=== PATIENT | male | born 1950 | race Caucasian/White ===

== ENCOUNTER 2017-03-23 17:06 | Inpatient (IN) ==
[2017-03-23] MEDS ORDERED: Furosemide 40 MG/4 ML VIAL IVP ONE (17:21)
--- NOTE | 2017-03-23 17:23 | Emergency Department Note ---
Disposition Clinical Impression: Shortness of breath, Orthopnea, Renal insufficiency CHF (congestive heart failure) Qualifiers: Congestive heart failure type: systolic Congestive heart failure chronicity: acute Qualified Code(s): I50.21 - Acute systolic (congestive) heart failure Disposition: Admitted As Inpatient Condition: Good Time of Disposition: 19:00 SOB HPI - General Chief Complaint: ED Shortness of Breath/Dyspnea Stated Complaint: SOB/ABRIL Time Seen by Provider: 03/23/17 17:15 Source: patient Limitations: no limitations Nursing Notes Reviewed: Yes Vital Signs Reviewed: Yes - History of Present Illness Patient is 67-year-old male with no prior history of cardiac events. Patient has a history of hypertension is on lisinopril who complains of intermittent chest pain, lightheadedness and shortness of breath worse with laying flat in times past 2 weeks. Patient states 3 weeks ago he was seen by urology received lithotripsy for right kidney stone and placement of stent which resulted in bilateral lower extremity edema 5 days later. Patient had pain 5 days after secondary to stent but after stents removed pain went away. Patient is seen at the [facility], d-dimer was elevated and had CT A performed which is negative for PE. - Related Data Home Medications Medication Instructions Recorded Confirmed Amitriptyline [Elavil] 10 mg PO HS 03/23/17 03/23/17 Cholecalciferol (D-3) [Vitamin D] 2,000 unit PO DAILY 03/23/17 03/23/17 Cyanocobalamin (B-12) [Vitamin B12] 1,000 mcg IM QMONTH 03/23/17 03/23/17 Lisinopril [Zestril] 10 mg PO DAILY 03/23/17 03/23/17 Niacin [Niaspan] 500 mg PO HS 03/23/17 03/23/17 Terazosin HCl 2 mg PO HS 03/23/17 03/23/17 glipiZIDE [Glipizide] 20 mg PO BID 03/23/17 03/23/17 metFORMIN [Glucophage] 850 mg PO TIDWM 03/23/17 03/23/17 Allergies Allergy/AdvReac Type Severity Reaction Status Date / Time simvastatin AdvReac Muscle Pain Verified 03/23/17 18:29 Review of Systems: Patient admits to weakness, lightheadedness, orthopnea, and bilateral lower extremity edema. Patient denies chest pain, abdominal pain, back pain. Patient denies focal neurologic deficits or vertigo. Patient denies loss of consciousness or falls All systems ED: reviewed and negative except as stated. Review of Systems: As Per HPI Constitutional: Reports: weakness. Denies: fever, chills Eyes: Denies: vision change Past Medical History - Past Medical History Attestation: Yes The following information was validated with the patient. Source: patient Physical Exam - General Limitations: no limitations General appearance: alert, in no apparent distress - Head Head exam: atraumatic, normocephalic, normal inspection - Eye Eye exam: Present: normal appearance, PERRL, EOMI - ENT ENT exam: normal exam, normal oropharynx, mucous membranes moist - Neck Neck exam: Present: normal inspection, full ROM, trachea midline - Chest Chest inspection: Present: normal inspection, symmetric chest wall rise - Respiratory Respiratory exam: Present: normal lung sounds bilaterally - Cardiovascular Cardiovascular exam: Present: regular rate, normal rhythm, normal heart sounds - Abdominal Exam Abdominal exam: Present: soft, Non-Tender. Absent: tenderness, distention, guarding, rebound, rigidity - Extremities Exam Extremities exam: Present: normal inspection, full ROM, pedal edema (1+ bilateral pitting edema). Absent: tenderness, calf tenderness - Back Exam Back exam: Present: normal inspection, full ROM. Absent: tenderness, CVA tenderness (R), CVA tenderness (L), muscle spasm, paraspinal tenderness - Neurological Exam Neurological exam: Present: alert, oriented X3, CN II-XII intact - Skin Skin exam: Present: warm, dry, intact, normal color Course Course Narrative: Patient concerns. Acute onset of shortness of breath, pedal edema 1+ pitting, bilateral lung rails with orthopnea concerning for CHF of new onset secondary to unknown source. Patient has recent troubles with kidney stones and bilateral lower extremity swelling after lithotripsy. Possible I patient suffered insult to the kidneys. Patient's lab here shows BNP elevation. Patient is treated with DuoNeb's, - Reevaluation(s) Reevaluation #1: Patient seen and examined. [facility] CTA chest for PE. Patient history and exam consistent with CHF exacerbation. Patient has no prior history of cardiac events but has history of possible renal insufficiency most likely secondary to recent troubles with kidney stones. Plan is for patient be admitted for further evaluation Vital Signs Temperature 98.3 F 03/23/17 17:14 Pulse Rate 61 03/23/17 17:14 Respiratory Rate 20 03/23/17 17:14 Blood Pressure 174/105 03/23/17 17:14 O2 Sat by Pulse Oximetry 98 03/23/17 17:14 Temperature 99.3 F 03/24/17 00:19 Pulse Rate 61 03/24/17 00:19 Respiratory Rate 19 03/24/17 00:19 Blood Pressure 176/93 03/24/17 00:19 O2 Sat by Pulse Oximetry 94 03/24/17 00:19 Oxygen Delivery Oxygen Delivery Room Air Shortness of Breath/Dyspnea - MDM Narrative Medical decision making narrative: Patient concerns. Acute onset of shortness of breath, pedal edema 1+ pitting, bilateral lung rails with orthopnea concerning for CHF of new onset secondary to unknown source. Patient has recent troubles with kidney stones and bilateral lower extremity swelling after lithotripsy. Possible I patient suffered insult to the kidneys. Patient currently has been hypertensive and states he is normally normotensive at 120/70. This may also be a symptom of patient's heart failure and renal insufficiency. Patient's lab here shows BNP elevation. Patient is treated with DuoNeb's, acetaminophen for headache. Patient's also started on nitroglycerin and Lasix for blood pressure control and for diuresis. Patient admits to 40 mg Lasix IV. Patient currently comfortable and not breathing at a fast rate on this patient seen to be in respiratory distress that would require BiPAP at this time. Recommend close monitoring for any signs of respiratory distress that patient should then be started on BiPAP. Patient is accepted for admission by Dr. Hardin the hospitalist - Lab Data Result diagrams: 03/24/17 00:11 03/24/17 00:11 Lab Results 03/23/17 03/23/17 03/23/17 Range/Units 17:45 17:45 17:45 Lactic Acid 1.2 (0.5-2.2) mmol/L Troponin I 0.02 (0-0.03) ng/mL B-Natriuretic Peptide 364 H (0-100) pg/mL Attestation Statement - Attestation Attestation: I, Chris Diaz, examined this patient and my medical decision-making was reviewed with the COMMUNICATIONS CONTROLLER/PA/Advanced Practice Nurse/Resident Physician. I agree with the documented findings, disposition and treatment plan as described except to the extent set forth below. 67-year-old male presents to the emergency department with concerns of shortness of breath and weakness and headache. Patient states he had recent lithotripsy for an obstructing kidney stone, after the procedure he had decreased urination, he then stopped his Flomax and he was unable to urinate at all. Patient states he then started to swell and have increased difficulty breathing which increased over the period of a couple days. He then started to take his Flomax again about 2 days prior to evaluation emergency Department, he has noticed that his symptoms have started to improve however they are not resolved. Patient was evaluated by the [facility] urgent [facility], he had a elevated d- dimer however his CTA of his chest did not reveal evidence of acute PE. It did however show bilateral pleural effusions with almost complete collapse of the left lower lobe partial collapse of the right lower lobe. Troponin within normal limits. Creatinine within normal limits today. Patient's blood pressure was significantly elevated upon initial arrival in the emergency department. I feel like this is secondary to acute CHF exacerbation. Patient treated with nitroglycerin which improved his blood pressure and headache. No focal neurologic deficits on exam. Denies chest pain. EKG showed normal sinus rhythm with rate of 61 without evidence of STEMI. OB admitted the hospital for further care and evaluation of his acute congestive heart failure, bilateral pleural effusions and hypertension.
[2017-03-23] MEDS: Nitroglycerin 0.4 MG TAB.SUBL SL PRN ×3 (17:41→17:52)
[2017-03-23] MEDS ORDERED: 0.9 % Sodium Chloride 1,000 ML IVC ONE (19:07)
[2017-03-23] MEDS ORDERED: Ipratropium/Albuterol Neb 3 ML IH ONE (19:18)
[2017-03-23] MEDS ORDERED: Nitroglycerin 0.2 MG PATCH.TD24 TD ONE (19:30)
[2017-03-23] MEDS ORDERED: Nitroglycerin 0.2 MG PATCH.TD24 TD SCH (19:30)
[2017-03-23] MEDS: Nitroglycerin 0.4 MG TAB.SUBL SL STA ×2 (19:31→19:38)
[2017-03-23] MEDS ORDERED: Ondansetron ODT 4 MG TAB.RAPDIS SL PRN (20:37)
[2017-03-23] MEDS ORDERED: Naloxone 0.4 MG/ML INJ IVP PRN (20:37)
[2017-03-23] MEDS ORDERED: D5% in Water 1,000 ML IVC PRN (20:41)
[2017-03-23] MEDS ORDERED: Dextrose Gel 15 GM PO PRN ×2 (20:41)
[2017-03-23] MEDS ORDERED: *HR* Dextrose 50 % in Water (Syg) 50 ML SYRINGE IVP PRN (20:41)
--- NOTE | 2017-03-23 20:47 | Internal Med History&Physical ---
<Devin Kothari - Last Filed: 03/23/17 21:00> Date of Encounter: 03/23/17 Time of Encounter: 20:43 Assessment and Plan (1) Acute exacerbation of CHF (congestive heart failure) Current visit: Yes Status: Acute Patient states he had lithotripsy done 2 weeks ago at the [facility]. Noticed again of 10 pounds post procedure. symptoms of shortness of breath, lower extremity swelling, headache that has been constant after the procedure. [facility] underwent CTA showing no evidence of PE but large bilateral pleural effusions with atelectasis bilaterally Chest x-ray at [facility] shows bilateral pleural effusions BNP elevated at 360 Lower extremity edema 2+ Troponin wnl. Denies chest pain EKG NSR HR [address] elevation or depressions Plan: IV Lasix Fluid restricted diet Cardiac ADA diet Echocardiogram Strict I's and O's continue home lisinopril Qualifiers: Congestive heart failure type: unspecified congestive heart failure type Qualified Code(s): I50.9 - Heart failure, unspecified (2) Hypertension Current visit: Yes Status: Acute Patient presents with a blood pressure of systolic over 200. States at home his blood pressure usually runs 120/80 Likely secondary to fluid overload Reports headache that is frontal, constant, 10/10, throbbing denies blurry vision, confusion, slurred speech, facial droop Plan: Continue home lisinopril IV Lasix Q4h vitals Qualifiers: Hypertension type: essential hypertension Qualified Code(s): I10 - Essential (primary) hypertension (3) Diabetes mellitus Current visit: Yes Status: Acute History of diabetes mellitus controlled with glipizide and metformin. Plan: Cardiac ADA diet Low dose sliding scale insulin ACHS Qualifiers: Diabetes mellitus type: type 2 Diabetes mellitus complication status: without complication Diabetes mellitus half-way insulin use: without regrinder operator use Qualified Code(s): E11.9 - Type 2 diabetes mellitus without complications (4) History of kidney stones Current visit: Yes Status: Acute s/p lithotripsy secondary to obstruction from renal calculi Denies dysuria, hematuria Patient was put on Flomax after the procedure which he states he stopped last week and noticed a significant decrease in his urine production. Patient restarted the medication and states his urine production is back to normal. Plan: Continue Flomax Follow up with outpatient urology (5) DVT prophylaxis Current visit: Yes Status: Acute heparin SQ Internal Medicine - H&P: HPI Chief complaint: sob Admitted From: Home Plans for Post Hospital Care: Home History of present illness: Mr. Guerrero is a 67 year old male presents with cc of sob. 3 weeks ago patient had lithotripsy at the [facility] and noted to gain 10 pounds after the procedure. Patient started noticing shortness of breath, lower extremity swelling. He was short of breath on exertion and while laying flat. His symptoms of minimally improved since his surgery. States he weighs 173 pounds and used to weigh 165 before the surgery. Denies history of congestive heart failure. Denies previous cardiac workup. He started having frontal headaches that radiate to the back that are described as throbbing and progressively worsening over the last 3 weeks without confusion, passing out, dizziness. Headache would worsen with movement and improvement narcotic pain medication. Denies chest pain, abdominal pain, numbness, tingling, slurred speech, unilateral weakness. Reports after the lithotripsy he was put on Flomax and had no problems with urine output. He discontinued this one week ago and noticed his urine output completely stopped as patient restarted taking medication with improvement in his urine production. Past Med Surg Social Fam HX - Past Medical History Medical history: diabetes, hypertension, kidney stones Psychiatric history: no psych history - Past Surgical History Surgical History: ureteral stent - Social History Smoking Status: Former smoker Smokeless Tobacco Status: No Alcohol use: occasionally Drug use: none - Family History Father Hx Family Cancer: No Internal Medicine - H&P: Meds Amitriptyline [Elavil] 10 mg PO HS 03/23/17 [History] Cholecalciferol (D-3) [Vitamin D] 2,000 unit PO DAILY 03/23/17 [History] Cyanocobalamin (B-12) [Vitamin B12] 1,000 mcg IM QMONTH 03/23/17 [History] Lisinopril [Zestril] 10 mg PO DAILY 03/23/17 [History] Niacin [Niaspan] 500 mg PO HS 03/23/17 [History] Terazosin HCl 2 mg PO HS 03/23/17 [History] glipiZIDE [Glipizide] 20 mg PO BID 03/23/17 [History] metFORMIN [Glucophage] 850 mg PO TIDWM 03/23/17 [History] 3 Allergy/AdvReac Type Severity Reaction Status Date / Time simvastatin AdvReac Muscle Pain Verified 03/23/17 18:29 All Systems PM: A 10-system review of systems was performed and is negative for pertinent findings except as documented above in the HPI. Review of systems: Constitutional: Denies fever, chills HEENT: Denies vision changes, neck pain, sore throat, rhinorrhea. Reports headaches Heart: Denies chest pain palpitations Lungs: With poor shortness of breath. Denies cough Abdomen: Denies abdominal pain nausea vomiting diarrhea Back: Denies back pain Kidney: Denies dysuria, hematuria Skin: warm and dry Extremities: Reports lower extremity swelling, denies pain Neuro: Denies numbness, and tingling - Constitutional Vitals: Temp Pulse Resp BP Pulse Ox 98.3 F 65 20 173/92 98 03/23/17 17:24 03/23/17 20:22 03/23/17 20:22 03/23/17 20:22 03/23/17 20:22 - Other Additional findings: General: Pleasant male without distress HEENT: Head atraumatic, normocephalic, EOMI, PERRLA, neck nontender to palpation , absent lymphadenopathy, Moist Mucous Membranes, Heart: Regular rate and rhythm with no murmur Lungs: Bilateral crackles otherwise clear. Diminished breath sounds Abdomen: Soft nontender, nondistended positive bowel sounds Skin: warm and dry Extremities: 2+ pedal edema Neuro: Cranial nerves II through XII intact, UE and LE sensation equal bilaterally, UE and LEstrength 5/5, alert oriented 3, Heel to kumar intact, finger to nose intact, Gait intact, b/l plantar reflexes downwards Vascular: Pedal and radial pulses 2 out of 4 <Lopez Hardin - Last Filed: 03/24/17 00:00> Date of Encounter: 03/23/17 Internal Medicine - H&P: HPI History of present illness: Mr. Guerrero is a 67 year old male All Systems PM: A 10-system review of systems was performed and is negative for pertinent findings except as documented above in the HPI. - Constitutional Vitals: Temp Pulse Resp BP Pulse Ox 98.2 F 64 19 201/90 92 03/23/17 21:18 03/23/17 21:18 03/23/17 21:18 03/23/17 21:18 03/23/17 21:18 - Attending Attestation I examined this patient and my medical decision-making was reviewed with the Resident Physician, Dr. Devin Kothari. I agree with the documented findings, disposition and treatment plan as described except to the extent set forth below. I have independently obtained history and examined the patient and my findings are summarized below: Patient presents with lower extremity swelling On exam she he is in no acute distress. Heart is regular. Lungs are diminished bilaterally at both bases Plan: IV Lasix twice a day, fluid restriction, daily weights, strict I's and O's , check echocardiogram and trend troponin. shelter monitor.
[2017-03-23] MEDS: Niacin (24 HR) 500 MG TAB.ER.24H PO SCH (23:28)
[2017-03-23] MEDS: Famotidine 20 MG TABLET PO SCH (23:29)
[2017-03-23] MEDS: *HR* Heparin 5,000 UNIT/ML VIAL SQ SCH (23:29)
[2017-03-23] MEDS: Insulin LISPRO 300 UNITS/3 ML VIAL SQ SCH (23:32)
[2017-03-23] MEDS: Acetaminophen 325 MG TABLET PO PRN (23:46)
[2017-03-24 00:23] LABS: Basophils % 0.3 %; Eosinophils # 0.2 K/mcL (0.0-0.6); Eosinophils % 2.9 %; Hematocrit 30.1 % (37.5-50.1); Hemoglobin 10.2 g/dL (12.9-16.9); Immature Granulocytes % 0.3 % (0-4); Lymphocytes # 1.8 K/mcL (0.6-4.6); Lymphocytes % 22.9 %; Mean Corpuscular HGB Conc 33.9 g/dL (31.6-35.5); Mean Corpuscular Hemoglobin 30.8 pg (28.0-33.3); Mean Corpuscular Volume 90.9 fL (83.0-100.0); Mean Platelet Volume 9.5 fL (9.4-12.4); Monocytes # 0.6 K/mcL (0.0-1.3); Monocytes % 7.1 %; Neutrophils # 5.2 K/mcL (1.6-8.9); Platelet Count 210 K/mcL (140-400); Red Blood Count 3.31 M/mcL (4.19-5.50); Segmented Neutrophils % 66.5 %
[2017-03-24 00:35] LABS: BUN/Creatinine Ratio 27 (6-26); Blood Urea Nitrogen 26 mg/dL (8-26); Calcium 9.6 mg/dL (8.6-10.8); Carbon Dioxide 20 mEq/L (19-29); Chloride 113 mEq/L (98-109); Glucose 191 mg/dL (70-99); Magnesium 1.5 mg/dL (1.6-2.6); Osmolality,Calculated 304 (280-300); Potassium 3.8 mEq/L (3.5-4.5); Sodium 142 mEq/L (136-145); eGFR For African Americans > 60 (> 60); eGFR For Non-African Americans > 60 (> 60)
[2017-03-24] MEDS ORDERED: Magnesium Sulfate 1 GM in D5% in Water 100 ML IVPB ONE (02:41)
[2017-03-24] MEDS: *HR* Heparin 5,000 UNIT/ML VIAL SQ SCH ×3 (05:48→21:08)
[2017-03-24] MEDS: Acetaminophen 325 MG TABLET PO PRN ×3 (05:48→21:08)
[2017-03-24] MEDS: Insulin LISPRO 300 UNITS/3 ML VIAL SQ SCH ×4 (08:46→22:12)
[2017-03-24] MEDS ORDERED: Furosemide 40 MG/4 ML VIAL IVP SCH (09:00)
[2017-03-24] MEDS: Famotidine 20 MG TABLET PO SCH ×2 (09:32→21:08)
[2017-03-24] MEDS ORDERED: Cyanocobalamin (B-12) 1,000 MCG/ML VIAL IM SCH ×2 (10:00→10:30)
--- NOTE | 2017-03-24 10:11 | Internal Med Progress Note ---
Date of Encounter: 03/24/17 Time of Encounter: 10:10 - Assessment and plan (1) Acute exacerbation of CHF (congestive heart failure) Current Visit: Yes Status: Acute Assessment and plan: Reviewed CXR showed inc vascualr congestion and atelectasis..no consolidations He does have significnat CHF exacerbation ..mostly diastolic waiting on 2 D Echo report cont Lasix 40mg IV BID for now strict I & O f/u BNP and CXR in AM cont Lisinopril..will start low dose Coreg if BP allows Qualifiers: Congestive heart failure type: unspecified congestive heart failure type Qualified Code(s): I50.9 - Heart failure, unspecified (2) Pleural effusion Current Visit: Yes Status: Acute Assessment and plan: due to CHF exacerbation mostly cont close monitoring cont IV diuresis (3) Hypertension Current Visit: Yes Status: Acute Assessment and plan: stable with home med Lisinopril cont Lasix Qualifiers: Hypertension type: essential hypertension Qualified Code(s): I10 - Essential (primary) hypertension (4) Diabetes mellitus Current Visit: Yes Status: Acute Assessment and plan: resumed home med metformin on ISS check HbA1C Qualifiers: Diabetes mellitus type: type 2 Diabetes mellitus complication status: without complication Diabetes mellitus terminal gauger insulin use: without snf use Qualified Code(s): E11.9 - Type 2 diabetes mellitus without complications (5) History of kidney stones Current Visit: Yes Status: Chronic Assessment and plan: No signs of kidney stone complications now cont flomax and Hytrin for his BPH (6) DVT prophylaxis Current Visit: Yes Status: Acute Assessment and plan: on SQ heparin - Subjective Interval history: Mr. Guerrero is a 67 year old male presents with cc of sob. 3 weeks ago patient had lithotripsy at the [facility] and noted to gain 10 pounds after the procedure. Patient started noticing shortness of breath, lower extremity swelling. He was short of breath on exertion and while laying flat. His symptoms of minimally improved since his surgery. States he weighs 173 pounds and used to weigh 165 before the surgery. Denies history of congestive heart failure. Denies previous cardiac workup. He was admitted here for acute CHF exacerbation..GSive IV lasix x 2 doses so far. He stated he is feeling little better today. Still has some SOB / CHÁVEZ and b /l LE edema. Denied any CP - Constitutional Vitals: Temp Pulse Resp BP Pulse Ox 98.5 F 96 17 119/66 96 03/24/17 08:26 03/24/17 08:26 03/24/17 08:26 03/24/17 08:26 03/24/17 08:26 General appearance: Present: A&O X 3, no acute distress, answers questions appropriately - Head Head exam: Present: atraumatic, normal inspection - Respiratory Respiratory exam: Present: decreased breath sounds, rales (b/l basal regions), wheezes. Absent: respiratory distress, rhonchi - Cardiovascular Cardiovascular exam: Present: RRR, +S1, +S2. Absent: gallop, systolic murmur - GI/Abdominal GI/Abdominal exam: Present: normal bowel sounds, soft, no peritoneal signs. Absent: distended, tenderness - Extremities Exam Extremities exam: Present: pedal edema (2+). Absent: calf tenderness, tenderness - Neurological Exam Neurological exam: Present: alert, oriented X3 - Psychiatric Psychiatric exam: Present: normal affect, normal mood Internal Medicine: Result - Labs CBC & Chem 7: 03/24/17 00:11 03/24/17 00:11 Labs: Short CBC 03/24/17 Range/Units 00:11 WBC 7.9 (4.3-11.1) K/mcL Hgb 10.2 L (12.9-16.9) g/dL Hct 30.1 L (37.5-50.1) % Plt Count 210 (140-400) K/mcL Neutrophils # 5.2 (1.6-8.9) K/mcL BMP 03/24/17 00:11 Sodium 142 Potassium 3.8 Chloride 113 H Carbon Dioxide 20 BUN 26 Creatinine 0.98 Glucose 191 H Calcium 9.6 Cardiac Enzymes 03/24/17 03/24/17 Range/Units 00:11 06:08 Troponin I 0.02 0.03 (0-0.03) ng/mL Consult Discharge Plan - Plan [facility]errals: [facility] [Primary Care Provider] -
[2017-03-24] MEDS: Cholecalciferol (D-3) 1,000 UNIT TABLET PO SCH (12:20)
[2017-03-24] MEDS ORDERED: *HR* LORazepam 0.5 MG TABLET PO PRN (16:20)
[2017-03-24] MEDS: *HR* Metformin 850 MG TABLET PO SCH (16:39)
[2017-03-24] MEDS: *HR* HYDROcodone/Acet 5/325 mg TABLET PO PRN ×2 (16:58→22:54)
[2017-03-24] MEDS: Furosemide 40 MG/4 ML VIAL IVP SCH (16:58)
[2017-03-24] MEDS: Niacin (24 HR) 500 MG TAB.ER.24H PO SCH (21:08)
[2017-03-25] MEDS: Acetaminophen 325 MG TABLET PO PRN ×2 (03:40→22:09)
[2017-03-25 04:28] LABS: Basophils % 0.3 %; Eosinophils # 0.2 K/mcL (0.0-0.6); Eosinophils % 2.3 %; Hemoglobin 11.2 g/dL (12.9-16.9); Immature Granulocytes % 0.5 % (0-4); Lymphocytes # 1.8 K/mcL (0.6-4.6); Lymphocytes % 20.5 %; Mean Corpuscular Hemoglobin 31.8 pg (28.0-33.3); Mean Corpuscular Volume 90.9 fL (83.0-100.0); Mean Platelet Volume 9.8 fL (9.4-12.4); Monocytes # 0.7 K/mcL (0.0-1.3); Monocytes % 7.8 %; Neutrophils # 6.1 K/mcL (1.6-8.9); Platelet Count 228 K/mcL (140-400); Red Blood Count 3.52 M/mcL (4.19-5.50); Red Cell Distribution Width 12.6 % (11.5-14.5); Segmented Neutrophils % 68.6 %
[2017-03-25 04:39] LABS: BUN/Creatinine Ratio 17 (6-26); Blood Urea Nitrogen 23 mg/dL (8-26); Carbon Dioxide 20 mEq/L (19-29); Chloride 111 mEq/L (98-109); Glucose 207 mg/dL (70-99); Magnesium 1.6 mg/dL (1.6-2.6); Osmolality,Calculated 308 (280-300); Potassium 3.6 mEq/L (3.5-4.5); Sodium 144 mEq/L (136-145); eGFR For African Americans > 60 (> 60); eGFR For Non-African Americans 52 (> 60)
[2017-03-25] MEDS: *HR* Heparin 5,000 UNIT/ML VIAL SQ SCH ×4 (07:05→22:14)
[2017-03-25] MEDS: *HR* Metformin 850 MG TABLET PO SCH (08:50)
[2017-03-25] MEDS: Famotidine 20 MG TABLET PO SCH ×2 (08:50→22:09)
[2017-03-25] MEDS: Cholecalciferol (D-3) 1,000 UNIT TABLET PO SCH (08:50)
[2017-03-25] MEDS: *HR* HYDROcodone/Acet 5/325 mg TABLET PO PRN ×2 (08:50→17:13)
[2017-03-25] MEDS: Insulin LISPRO 300 UNITS/3 ML VIAL SQ SCH ×4 (08:51→22:11)
[2017-03-25] MEDS: Furosemide 40 MG/4 ML VIAL IVP SCH (08:51)
[2017-03-25] MEDS ORDERED: Isosorbide MONOnitrate (24 HR) 60 MG TAB.ER.24H PO SCH (09:15)
[2017-03-25] MEDS ORDERED: *HR* GlipiZIDE 5 MG TABLET PO SCH ×2 (09:15→21:00)
--- NOTE | 2017-03-25 09:31 | Internal Med Progress Note ---
Date of Encounter: 03/25/17 Time of Encounter: 09:29 - Assessment and plan (1) Acute exacerbation of CHF (congestive heart failure) Current Visit: Yes Status: Acute Assessment and plan: CXR from admission showed inc vascualr congestion and atelectasis..no consolidations He does have diastolic CHF exacerbation 2 D Echo report - showed normal LVEF, but mild diastolic dysfunction noticed had -3 lit fluid balance d/c Lasix due to worsening Cr Cont close monitoring BNP improving Cont ASA, Lisinopril and added Metoprolol Qualifiers: Congestive heart failure type: unspecified congestive heart failure type Qualified Code(s): I50.9 - Heart failure, unspecified (2) Pleural effusion Current Visit: Yes Status: Acute Assessment and plan: due to CHF exacerbation mostly improving Ordered f/u CXR today (3) Hypertension Current Visit: Yes Status: Acute Assessment and plan: Fairly controlled Inc Lisinopril to 20mg Added Metoprolol at 25 mg BID and Hydralazine 50mg TID Qualifiers: Hypertension type: essential hypertension Qualified Code(s): I10 - Essential (primary) hypertension (4) Severe headache Current Visit: Yes Status: Acute Assessment and plan: could be due to uncontrolled BP He did c/o 2 wees head ache.. this is his another chief complaint to come to ER He did mention b/l temporal headache.. but no palpable tednerness at temporal region now with my examination Highly unlikely it is temporal arteritis however will check his ESR also will get a stat CT of Head cont analgesics (5) Diabetes mellitus Current Visit: Yes Status: Acute Assessment and plan: resumed home med metformin and Glipizide on ISS check HbA1C in AM Qualifiers: Diabetes mellitus type: type 2 Diabetes mellitus complication status: without complication Diabetes mellitus assisted insulin use: without assisted use Qualified Code(s): E11.9 - Type 2 diabetes mellitus without complications (6) History of kidney stones Current Visit: Yes Status: Chronic Assessment and plan: No signs of kidney stone complications now cont flomax and Hytrin for his BPH (7) DVT prophylaxis Current Visit: Yes Status: Acute Assessment and plan: on SQ heparin - Subjective Interval history: Mr. Guerrero is a 67 year old male presents with cc of sob. 3 weeks ago patient had lithotripsy at the [facility] and noted to gain 10 pounds after the procedure. Patient started noticing shortness of breath, lower extremity swelling. He was short of breath on exertion and while laying flat. His symptoms of minimally improved since his surgery. States he weighs 173 pounds and used to weigh 165 before the surgery. Denies history of congestive heart failure. Denies previous cardiac workup. He was admitted here for acute CHF exacerbation..Denied any CP. Had an episode of shortness of breath and CHÁVEZ last night but now feels better. Cough + with no expectoration. He is still c/o severe frontal and occipital headaches - Constitutional Vitals: Temp Pulse Resp BP Pulse Ox 98.2 F 94 18 149/71 95 03/25/17 03:36 03/25/17 07:00 03/25/17 07:00 03/25/17 07:00 03/25/17 07:00 General appearance: Present: A&O X 3, no acute distress, answers questions appropriately - Head Head exam: Present: atraumatic, normal inspection - Respiratory Respiratory exam: Present: decreased breath sounds, wheezes. Absent: rales, respiratory distress, rhonchi - Cardiovascular Cardiovascular exam: Present: RRR, +S1, +S2. Absent: systolic murmur - GI/Abdominal GI/Abdominal exam: Present: normal bowel sounds, soft. Absent: rebound, rigid, tenderness - Extremities Exam Extremities exam: Present: pedal edema (improving). Absent: calf tenderness, tenderness - Neurological Exam Neurological exam: Present: alert, oriented X3 Additional comments: no temporal artery tenderness .. - Psychiatric Psychiatric exam: Present: normal affect, normal mood Internal Medicine: Result - Labs CBC & Chem 7: 03/25/17 04:04 03/25/17 04:04 Labs: Short CBC 03/25/17 Range/Units 04:04 WBC 8.9 (4.3-11.1) K/mcL Hgb 11.2 L (12.9-16.9) g/dL Hct 32.0 L (37.5-50.1) % Plt Count 228 (140-400) K/mcL Neutrophils # 6.1 (1.6-8.9) K/mcL BMP 03/25/17 04:04 Sodium 144 Potassium 3.6 Chloride 111 H Carbon Dioxide 20 BUN 23 Creatinine 1.36 H Glucose 207 H Calcium 10.0 Consult Discharge Plan - Plan [facility]errals: [facility] [Primary Care Provider] -
[2017-03-25] MEDS: hydrALAZINE 25 MG TABLET PO SCH ×2 (10:02→17:13)
[2017-03-25] MEDS ORDERED: *HR* GlipiZIDE 5 MG TABLET PO ONE (17:41)
[2017-03-25] MEDS ORDERED: *HR* Metformin 850 MG TABLET PO ONE (17:42)
[2017-03-25] MEDS ORDERED: *HR* Metformin 850 MG TABLET PO SCH (21:00)
[2017-03-25] MEDS: Niacin (24 HR) 500 MG TAB.ER.24H PO SCH (22:09)
[2017-03-26] MEDS: hydrALAZINE 25 MG TABLET PO SCH ×3 (00:01→15:49)
[2017-03-26] MEDS: *HR* HYDROcodone/Acet 5/325 mg TABLET PO PRN (03:15)
[2017-03-26 05:15] LABS: Calcium 9.1 mg/dL (8.6-10.8); Magnesium 1.4 mg/dL (1.6-2.6); Potassium 3.5 mEq/L (3.5-4.5)
[2017-03-26 05:16] LABS: Hemoglobin A1C 7.7 %
[2017-03-26] MEDS: *HR* Heparin 5,000 UNIT/ML VIAL SQ SCH (05:56)
[2017-03-26] MEDS ORDERED: *HR* Metformin 850 MG TABLET PO SCH (08:00)
[2017-03-26] MEDS ORDERED: *HR* GlipiZIDE 5 MG TABLET PO SCH (08:00)
[2017-03-26] MEDS: Famotidine 20 MG TABLET PO SCH (09:09)
[2017-03-26] MEDS: Insulin LISPRO 300 UNITS/3 ML VIAL SQ SCH ×2 (09:09→13:08)
[2017-03-26] MEDS: Cholecalciferol (D-3) 1,000 UNIT TABLET PO SCH (09:09)
[2017-03-26] MEDS ORDERED: Magnesium Sulfate 2 GM in D5% in Water 100 ML IVPB ONE (11:32)
--- NOTE | 2017-03-26 12:01 | Discharge Summary ---
Date of Encounter: 03/26/17 Time of Encounter: 11:55 - Discharge Diagnosis (1) Acute exacerbation of CHF (congestive heart failure) Priority: Primary Status: Acute Qualifiers: Congestive heart failure type: unspecified congestive heart failure type Qualified Code(s): I50.9 - Heart failure, unspecified (2) Pleural effusion Priority: Primary Status: Acute (3) Hypertension Priority: Primary Status: Acute Qualifiers: Hypertension type: essential hypertension Qualified Code(s): I10 - Essential (primary) hypertension (4) Severe headache Priority: Secondary Status: Acute (5) Diabetes mellitus Priority: Secondary Status: Acute Qualifiers: Diabetes mellitus type: type 2 Diabetes mellitus complication status: without complication Diabetes mellitus care home insulin use: without intermediate project manager use Qualified Code(s): E11.9 - Type 2 diabetes mellitus without complications (6) History of kidney stones Priority: Secondary Status: Chronic (7) DVT prophylaxis Priority: Secondary Status: Acute - Discharge Medications Prescriptions: Furosemide [Lasix] 20 mg PO DAILY #30 tablet Hydralazine HCl 50 mg PO TID #90 tablet Lisinopril [Zestril] 20 mg PO DAILY 30 Days Metoprolol [Lopressor] 25 mg PO BID #60 tab Home Medications: Amitriptyline [Elavil] 10 mg PO HS 03/23/17 [History] Cholecalciferol (D-3) [Vitamin D] 2,000 unit PO DAILY 03/23/17 [History] Cyanocobalamin (B-12) [Vitamin B12] 1,000 mcg IM QMONTH 03/23/17 [History] Terazosin HCl 2 mg PO HS 03/23/17 [History] glipiZIDE [Glipizide] 20 mg PO BID 03/23/17 [History] Tamsulosin HCl [Flomax] 0.4 mg PO DAILY 03/24/17 [History] Furosemide [Lasix] 20 mg PO DAILY #30 tablet 03/26/17 [Rx] Hydralazine HCl 50 mg PO TID #90 tablet 03/26/17 [Rx] Lisinopril [Zestril] 20 mg PO DAILY 30 Days 03/26/17 [Rx] Metoprolol [Lopressor] 25 mg PO BID #60 tab 03/26/17 [Rx] metFORMIN [Glucophage] 850 mg PO BID #0 03/26/17 [Rx] Allergies/Adverse Reactions: 3 Allergy/AdvReac Type Severity Reaction Status Date / Time simvastatin AdvReac Muscle Pain Verified 03/23/17 18:29 Procedures/tests Complete & Pending: Procedures Performed prior 72 hours Category Date Time Status Head CT without Contrast [CT head/brain wo con] [CT] Cat Scan 03/25/17 09:28 Completed Stat EV echocardiogram Routine Y 03/24/17 Completed Date of admission: 03/23/17 20:26 Primary care physician: [facility]CP [facility] - Patient Status Disposition: Home, Self-Care Condition: Good Overall status at discharge: patient is back to baseline - Ambulatory Orders Ambulatory Orders: Basic Metabolic Panel [CHEM] Time Frame: 03/28/17, Location: [facility] - Discharge Instructions Follow Up With: [facility] [Primary Care Provider] - Additional Instructions: Please go for BMP on 03/28/17 -- If Cr is better start taking Lasix again Also keep checking your BP at home, if it is constantly elevated above 170/90, please call your PCP or come back to ER - Diet and Activity Activity: increase activity as tolerated Diet: low salt diet Hospital course: Mr. Guerrero is a 67 year old male presents with cc of sob. 3 weeks ago patient had lithotripsy at the [facility] and noted to gain 10 pounds after the procedure. Patient started noticing shortness of breath, lower extremity swelling. He was short of breath on exertion and while laying flat. His symptoms of minimally improved since his surgery. States he weighs 173 pounds and used to weigh 165 before the surgery. Denies history of congestive heart failure. Denies previous cardiac workup. He was admitted here for acute CHF exacerbation. He was placed on circus trainer and checked serial troponin which were negative. He was also placed on aggressive IV diuresis. His 2 D Echo showed normal LVEF @ 65 % and mild diastolic dysfunction noticed. His SOB and Pedal edema started improving. Now he is off the O2 and breathing comfortably on RA. He denied any CP. He does have uncontrolled HTN, so titrated his home med Lisinopril and added Metoprolol and Hydralazine. His BP slightly better now. Recommend to continue current regimen and keep monitoring his BP at home. If BP still stays above 170 constantly recommend to come back to ER or f/u with PCP. He did have slightly elevated Cr mostly due to aggressive diuresis. His Cr stable now, recommend to hold Lasix for another 2 days and go for BMP on on Sunday. If Cr improves, then he can start taking his Lasix. He did c/o severe headache which could be due to his uncontrolled BP. His CT of Head came back as negative for any intracranial hemorrhage. Now with stable BP his headaches also better. - Time Spent with Patient Total time spent providing and/or coordinating discharge services: - Constitutional Vitals: Temp Pulse Resp BP Pulse Ox 98.1 F 88 16 162/86 98 03/26/17 07:55 03/26/17 07:55 03/26/17 07:55 03/26/17 07:55 03/26/17 07:55 General appearance: Present: A&O X 3, no acute distress, answers questions appropriately - Head Head exam: Present: atraumatic, normal inspection - Respiratory Respiratory exam: Present: CTAB. Absent: accessory muscle use, rales, respiratory distress, rhonchi, wheezes - Cardiovascular Cardiovascular exam: Present: RRR, +S1, +S2. Absent: diastolic murmur, gallop, rubs, systolic murmur - GI/Abdominal GI/Abdominal exam: Present: soft. Absent: rebound, rigid, tenderness - Extremities Exam Extremities exam: Present: pedal edema (pitting edema). Absent: calf tenderness , tenderness - Psychiatric Psychiatric exam: Present: normal affect, normal mood
[2017-03-26 12:04] VITALS: BP 161/89
[2017-03-26] MEDS: Acetaminophen 325 MG TABLET PO PRN (12:47)
--- NOTE | 2017-03-26 13:54 | Electrocardiograph Report ---
[address] [address] Test Date: 2017-03-23 Pat Name: Felipe Guerrero Department: 102 Room: BANNER3 Gender: M [place] Shearer Operator: Am : 1950 Requested By: Puma Delacruz Order Number: [id number] Reading MD: Angelica Gutierrez Measurements Intervals Combs Rate: 61 P: 16 WA: 148 QRS: 9 QRSD: 94 T: 39 QT: 448 QTc: 451 Interpretive Statements SINUS RHYTHM POSSIBLE LEFT ATRIAL ENLARGEMENT Electronically Signed On 03-26-2017 13:53:02 EDT by Angelica Gutierrez
[2017-03-26] MEDS ORDERED: *HR* GlipiZIDE 5 MG TABLET PO ONE (17:41)
[2017-03-26] MEDS ORDERED: *HR* Metformin 850 MG TABLET PO ONE (17:42)
== END 2017-03-26 15:30 | disposition home or self-care (01) | DRG 293 ==
LOC: EMEROO 17:06 → SUATTDRO 20:26 → 2NENU 20:26
PROVIDERS: ADMIT Internal Medicine; ATTEND Family Medicine